=== PATIENT | male | born 1970 | race Caucasian/White ===

== ENCOUNTER 2017-02-23 07:46 | Emergency (ER) | payer SELFPAY ==
[~2017-02-23] VITALS: Ht 170.2 cm; Wt 99.8 kg
--- NOTE | 2017-02-23 07:56 | NUR ---
CALLED [facility] [facility] FOR STAT TESTICULAR US
[2017-02-23] MEDS ORDERED: KETOROLAC TROMETHAMINE INJ 30 MG/ML VIAL IV ONE (08:00)
[2017-02-23] MEDS ORDERED: HYDROMORPHONE INJ 2 MG/ML DISP.SYRIN IV ONE (08:00)
[2017-02-23] MEDS ORDERED: IV NS 0.9% 500 ML BAG IV ONE (08:00)
[2017-02-23] MEDS ORDERED: ONDANSETRON HCL/PF 4 MG/2 ML VIAL IVP ONE (08:00)
--- NOTE | 2017-02-23 08:00 | NUR ---
BB family member for left flank, testicle pain with n/v snce 0600am today. +facial grimacing noted. nad all nees are attended, seen and evaluated by dr salazar
[2017-02-23] MEDS ORDERED: KETOROLAC TROMETHAMINE 15 MG/ML VIAL ONE (08:08)
[2017-02-23] MEDS ORDERED: ONDANSETRON HCL/PF 4 MG/2 ML VIAL ONE (08:08)
[2017-02-23] MEDS ORDERED: HYDROMORPHONE INJ 2 MG/ML DISP.SYRIN ONE ×2 (08:09→09:42)
[2017-02-23 08:15] LABS: BASOPHILS # (AUTO) 0.1 /CMM (0.0-0.2); BASOPHILS % (AUTO) 0.7 % (0.0-2.0); EOSINOPHILS # (AUTO) 0.3 /CMM (0.0-0.7); EOSINOPHILS % (AUTO) 1.9 % (0.0-6.0); HEMATOCRIT 46 % (39-51); HEMOGLOBIN 14.9 g/dL (13.5-17.5); LYMPHOCYTES # (AUTO) 3.9 /CMM (0.8-4.8); LYMPHOCYTES % (AUTO) 27.4 % (20.0-44.0); MEAN CORPUSCULAR HEMOGLOBIN 27 PG (26.0-33.0); MEAN CORPUSCULAR HGB CONC 32 g/dl (31.0-36.0); MEAN CORPUSCULAR VOLUME 84 fL (80-96); MONOCYTES # (AUTO) 0.9 /CMM (0.1-1.30); MONOCYTES % (AUTO) 6.5 % (2.0-12.0); NEUTROPHILS # (AUTO) 9.1 /CMM (1.8-8.9); NEUTROPHILS % (AUTO) 63.5 % (43.0-81.0); PLATELET COUNT (AUTO) 336 /CMM (150-450); RDW COEFFICIENT OF VARIATION 14.4 (11.5-15.0); RED BLOOD CELL COUNT(AUTO) 5.49 MIL/uL (4.5-6.0); WHITE BLOOD COUNT (AUTO) 14.4 K/uL (4.3-11.0)
--- NOTE | 2017-02-23 08:17 | NUR ---
patient taken for ct scan.
[2017-02-23 08:30] LABS: ALBUMIN 3.7 g/dL (3.4-5.0); BILIRUBIN,TOTAL 0.2 mg/dL (0.2-1.0); CALCIUM, SERUM 9.2 mg/dL (8.5-10.1); POTASSIUM 3.9 mmol/L (3.5-5.1); TOTAL PROTEIN, SERUM 7.7 g/dL (6.4-8.2)
--- NOTE | 2017-02-23 08:39 | NUR ---
pt back from CT. pain is at 1/10
[2017-02-23] MEDS ORDERED: TAMSULOSIN 0.4 MG CAP.SR.24H ONE (09:08)
[2017-02-23] MEDS ORDERED: HYDROMORPHONE 1 MG/1 ML DISP.SYRIN IV ONE (09:30)
[2017-02-23] MEDS ORDERED: TAMSULOSIN 0.4 MG CAP.SR.24H PO ONE (09:30)
--- NOTE | 2017-02-23 10:31 | NUR ---
IV removed. Catheter intact and site benign. Pressure and 4x4 applied to site. No bleeding noted. Patient discharged to home in stable condition. Written and verbal after care instructions given. Patient verbalizes understanding of instruction. instructed not to drive. pt verba;ized understanding
[2017-02-23 10:32] VITALS: BP 132/78
== END 2017-02-23 10:33 | disposition home or self-care (01) ==
LOC: ER 07:47
DX: N23 Unspecified renal colic (principal)
CPT/HCPCS: 36415; 74176; 76870; 80048; 80076; 83690; 85025; 96374; 96375; 96376; 99285; A4606; J1170 ×2; J1885; J2405; J7030; J7040; Z7610